=== PATIENT | male | born 1955 | race African-American/Black ===

== ENCOUNTER 2024-01-16 09:32 | Emergency (ER) | payer MEDICARE, OTHER ==
[~2024-01-16] VITALS: Ht 177.8 cm; Wt 79.5 kg
[2024-01-16 09:35] VITALS: TEMP 98.2
[2024-01-16] MEDS: IPRATROPIUM BROMIDE 0.5 MG/2.5 ML NEB SOLUTION NEB ONE (12:04)
[2024-01-16] MEDS: ALBUTEROL SULFATE 2.5 MG/0.5 ML NEB SOLUTION NEB ONE (12:04)
[2024-01-16 12:05] VITALS: PULSE 89; RESP 18; O2SAT 93
[2024-01-16 12:08] VITALS: PULSE 89; RESP 18; O2SAT 93
[2024-01-16 12:10] LABS: COVID AG,FIA SOURCE NASAL SWAB
[2024-01-16 12:15] LABS: BASOPHILS % (AUTO) 0.9 % (0.0-2.0); EOSINOPHILS % (AUTO) 2.1 % (1.0-6.0); HEMATOCRIT 48.9 % (41-53); HEMOGLOBIN 16.1 g/dL (13.5-17.5); LYMPHOCYTES % (AUTO) 18.4 % (22.0-44.0); MEAN CORPUSCULAR HEMOGLOBIN 35.5 pg (26.0-34.0); MEAN CORPUSCULAR VOLUME 107 fL (80-100); MONOCYTES # (AUTO) 0.5 K/uL (0.1-1.0); MONOCYTES % (AUTO) 9.8 % (2.0-9.0); NEUTROPHILS # (AUTO) 3.7 K/uL (1.8-7.7); NEUTROPHILS % (AUTO) 68.8 % (40.0-70.0); PLATELET COUNT (AUTO) 161 K/uL (150-450); RED BLOOD CELL COUNT(AUTO) 4.55 MIL/uL (4.50-5.90); RED CELL DISTRIBUTION WIDTH 13.7 % (11.5-14.5); WHITE BLOOD COUNT (AUTO) 5.4 K/uL (4.5-11.0)
[2024-01-16 12:22] LABS: ANION GAP 7 mmol/L (8-16); CALCIUM, TOTAL 9.4 mg/dL (8.8-10.5); CARBON DIOXIDE 31 mmol/L (22-29); CHLORIDE 98 mmol/L (98-107); CREATININE 0.99 mg/dL (0.60-1.30); GLOMERULAR FILTR. RATE CALC > 60 mL/min (>60); GLUCOSE,RANDOM 98 mg/dL (70-110); SODIUM SERUM 136 mmol/L (136-145); UREA NITROGEN, BLOOD 11 mg/dL (7-18)
[2024-01-16 12:25] VITALS: PULSE 86; RESP 18; O2SAT 100
[2024-01-16 12:29] LABS: B-TYPE NATRIURETIC PEPTIDE 21 pg/mL (0-100)
[2024-01-16 12:30] LABS: TROPONIN I-HIGH SENSITIVITY 15 ng/L (<76)
[2024-01-16 12:38] LABS: SARS-COV2 (COVID) ANTIGEN,FIA Negative (Negative)
[2024-01-16 12:40] LABS: INFLUENZA TYPE A NEGATIVE FOR TYPE A (NEGATIVE); INFLUENZA TYPE B NEGATIVE FOR TYPE B (NEGATIVE)
[2024-01-16 12:53] LABS: RBC MORPHOLOGY COMMENT ABNORMAL RBC MORPH
[2024-01-16] MEDS ORDERED: PRED-554 PO (13:56)
[2024-01-16] MEDS ORDERED: ALBU18HF12 IH (13:56)
[2024-01-16 13:59] VITALS: BP 144/88; PULSE 90; RESP 18
== END 2024-01-16 14:07 | disposition home or self-care (01) ==
LOC: EMS 09:32
DX: R06.02 Shortness of breath (principal); R05.9 Cough, unspecified; F17.210 Nicotine dependence, cigarettes, uncomplicated; Z20.822 Contact with and (suspected) exposure to COVID-19
CPT/HCPCS: 71046; 80048; 83880; 84484; 85025; 87804; 93005; 94640; 99285; 36415-L1; 36415-TC; J7613

== ENCOUNTER 2024-06-16 20:55 | Inpatient (IN) | payer MEDICARE ==
[~2024-06-16] VITALS: Ht 180.3 cm; Wt 76.9 kg
[~2024-06-16 20:55] MED LIST: ALBU18HF12 IH; PRED-554 PO
[2024-06-16 21:09] LABS: COVID AG,FIA SOURCE NASAL SWAB
[2024-06-16 21:26] LABS: INFLUENZA TYPE B NEGATIVE FOR TYPE B (NEGATIVE); SARS-COV2 (COVID) ANTIGEN,FIA Negative (Negative)
[2024-06-16 21:33] LABS: INFLUENZA TYPE A POSITIVE FOR TYPE A (NEGATIVE)
[2024-06-16 21:54] LABS: BASOPHILS % (AUTO) 0.4 % (0.0-2.0); EOSINOPHILS % (AUTO) 0.1 % (1.0-6.0); HEMOGLOBIN 16.5 g/dL (13.5-17.5); LYMPHOCYTES # (AUTO) 0.3 K/uL (1.0-4.8); LYMPHOCYTES % (AUTO) 5.8 % (22.0-44.0); MEAN CORPUSCULAR HEMOGLOBIN 36.1 pg (26.0-34.0); MEAN CORPUSCULAR VOLUME 110 fL (80-100); MONOCYTES # (AUTO) 0.4 K/uL (0.1-1.0); MONOCYTES % (AUTO) 7.7 % (2.0-9.0); NEUTROPHILS # (AUTO) 4.7 K/uL (1.8-7.7); PLATELET COUNT (AUTO) 121 K/uL (150-450); RED BLOOD CELL COUNT(AUTO) 4.56 MIL/uL (4.50-5.90); RED CELL DISTRIBUTION WIDTH 14.1 % (11.5-14.5); WHITE BLOOD COUNT (AUTO) 5.4 K/uL (4.5-11.0)
[2024-06-16 22:05] LABS: ANION GAP 10 mmol/L (8-16); CALCIUM, TOTAL 9.1 mg/dL (8.8-10.5); CARBON DIOXIDE 30 mmol/L (22-29); CHLORIDE 99 mmol/L (98-107); CREATININE 1.28 mg/dL (0.60-1.30); GLOMERULAR FILTR. RATE CALC > 60 mL/min (>60); GLUCOSE,RANDOM 126 mg/dL (70-110); POTASSIUM 4.4 mmol/L (3.5-5.1); SODIUM SERUM 139 mmol/L (136-145); UREA NITROGEN, BLOOD 23 mg/dL (7-18)
[2024-06-16 22:08] LABS: PLATELET MORPHOLOGY COMMENT GIANT PLTS PRESENT; RBC MORPHOLOGY COMMENT ABNORMAL RBC MORPH
[2024-06-16 22:13] LABS: TROPONIN I-HIGH SENSITIVITY 66 ng/L (<76)
[2024-06-16 22:18] LABS: B-TYPE NATRIURETIC PEPTIDE 51 pg/mL (0-100)
[2024-06-16 22:29] LABS: CREATINE KINASE, TOTAL ONLY 371 U/L (39-308)
[2024-06-16] MEDS: PredniSONE 20 MG TABLET PO ONE (22:35)
[2024-06-16] MEDS: ACETAMINOPHEN 500 MG TABLET PO ONE (22:35)
[2024-06-16 22:37] VITALS: PULSE 122; RESP 18; O2SAT 96
[2024-06-16] MEDS: IPRATROPIUM BROMIDE 0.5 MG/2.5 ML NEB SOLUTION NEB ONE (22:37)
[2024-06-16] MEDS: ALBUTEROL SULFATE 2.5 MG/0.5 ML NEB SOLUTION NEB ONE (22:37)
[2024-06-16 22:52] VITALS: PULSE 117; RESP 18; O2SAT 97
[2024-06-16] MEDS: OSELTAMIVIR PHOSPHATE 30 MG CAPSULE PO ONE (23:06)
[2024-06-17] MEDS ORDERED: SODIUM CHLORIDE 0.9% 100 ML ONE (00:12)
[2024-06-17] MEDS ORDERED: IOHEXOL 350 MG/ML 100 ML VIAL ONE (00:12)
[2024-06-17] MEDS: SODIUM CHLORIDE 0.9% 1,000 ML IV ONE (00:14)
[2024-06-17] MEDS ORDERED: DEXTROSE 50%-WATER 25 GM/50 ML SYRINGE IVP PRN (00:15)
[2024-06-17] MEDS ORDERED: 0.9% SODIUM CHLORIDE 10 ML SYRINGE IVP PRN (00:15)
[2024-06-17] MEDS: SODIUM CHLORIDE 0.9% 1,300 ML IV ONE (00:15)
[2024-06-17 00:56] LABS: ANION GAP 10 mmol/L (8-16); CALCIUM, TOTAL 8.9 mg/dL (8.8-10.5); CARBON DIOXIDE 28 mmol/L (22-29); CHLORIDE 98 mmol/L (98-107); CREATININE 1.53 mg/dL (0.60-1.30); GLOMERULAR FILTR. RATE CALC 55 mL/min (>60); GLUCOSE,RANDOM 130 mg/dL (70-110); SODIUM SERUM 136 mmol/L (136-145); UREA NITROGEN, BLOOD 25 mg/dL (7-18)
[2024-06-17] MEDS: CefTRIAXone 1 GM/DEXTROSE 50 ML IV ONE (00:56)
[2024-06-17 01:02] LABS: ALANINE AMINOTRANSFERASE 20 U/L (12-78); ALBUMIN 3.6 g/dL (3.4-5.0); ALKALINE PHOSPHATASE 76 U/L (46-116); ASPARTATE AMINOTRANSFERASE 33 U/L (15-37); BILIRUBIN,TOTAL 0.6 mg/dL (0.1-1.0); LACTATE DEHYDROGENASE 268 U/L (85-227); TOTAL PROTEIN, SERUM 7.6 g/dL (6.4-8.2)
[2024-06-17 02:30] VITALS: BP 150/85; PULSE 100; RESP 20; TEMP 98.7; O2SAT 94
[2024-06-17 03:29] LABS: TROPONIN I-HIGH SENSITIVITY 70 ng/L (<76)
[2024-06-17 05:27] VITALS: BP 125/71; PULSE 73; RESP 20; TEMP 98.9; O2SAT 100
[2024-06-17 08:24] VITALS: BP 141/85; PULSE 84; RESP 18; TEMP 97.8; O2SAT 99
[2024-06-17] MEDS: MethylPREDNISolone SOD SUCC 125 MG/2 ML VIAL IVP SCH (09:18)
[2024-06-17] MEDS: OSELTAMIVIR PHOSPHATE 30 MG CAPSULE PO SCH (09:19)
[2024-06-17 12:16] VITALS: BP 145/88; PULSE 87; RESP 17; TEMP 97.3; O2SAT 97
[2024-06-17] MEDS: DOXYCYCLINE HYCLATE 100 MG in DEXTROSE 5%-WATER 100 ML IV SCH (12:27)
[2024-06-17] MEDS ORDERED: SODIUM CHLORIDE 0.9% 250 ML IV ONE (12:30)
[2024-06-17] MEDS: INSULIN LISPRO 100 UNITS/ML SQ PRN (12:44)
[2024-06-17 14:01] LABS: GLUCOMETER DEV NAME(LOC) 5S.1D; GLUCOSE,POINT OF CARE 176 MG/DL (70-110)
[2024-06-17 16:38] VITALS: BP 159/95; PULSE 84; RESP 17; TEMP 97.8; O2SAT 96
[2024-06-17 18:06] LABS: GLUCOMETER DEV NAME(LOC) 5S.1D; GLUCOSE,POINT OF CARE 126 MG/DL (70-110)
[2024-06-17] MEDS: CefTRIAXone 1 GM/DEXTROSE 50 ML IV SCH (22:34)
[2024-06-18] VITALS (13 sets, daily range): BP systolic 123–140; BP diastolic 71–87; PULSE 73–87; RESP 16–20; TEMP 97.6–98; O2SAT 97–100
[2024-06-18 06:52] LABS: BASOPHILS % (AUTO) 1.3 % (0.0-2.0); EOSINOPHILS % (AUTO) 0 % (1.0-6.0); HEMATOCRIT 45.1 % (41-53); LYMPHOCYTES # (AUTO) 0.5 K/uL (1.0-4.8); LYMPHOCYTES % (AUTO) 9.5 % (22.0-44.0); MEAN CORPUSCULAR HEMOGLOBIN 36.8 pg (26.0-34.0); MEAN CORPUSCULAR HGB CONC 33.4 G/dL (31.0-37.0); MEAN CORPUSCULAR VOLUME 110 fL (80-100); MONOCYTES # (AUTO) 0.8 K/uL (0.1-1.0); MONOCYTES % (AUTO) 14.7 % (2.0-9.0); NEUTROPHILS # (AUTO) 4.3 K/uL (1.8-7.7); NEUTROPHILS % (AUTO) 74.5 % (40.0-70.0); PLATELET COUNT (AUTO) 121 K/uL (150-450); RED BLOOD CELL COUNT(AUTO) 4.09 MIL/uL (4.50-5.90); RED CELL DISTRIBUTION WIDTH 14.1 % (11.5-14.5); WHITE BLOOD COUNT (AUTO) 5.8 K/uL (4.5-11.0)
[2024-06-18 06:59] LABS: ANION GAP 5 mmol/L (8-16); CALCIUM, TOTAL 8.6 mg/dL (8.8-10.5); CARBON DIOXIDE 31 mmol/L (22-29); CHLORIDE 104 mmol/L (98-107); CREATININE 0.96 mg/dL (0.60-1.30); GLOMERULAR FILTR. RATE CALC > 60 mL/min (>60); GLUCOSE,RANDOM 102 mg/dL (70-110); POTASSIUM 4.8 mmol/L (3.5-5.1); SODIUM SERUM 140 mmol/L (136-145); UREA NITROGEN, BLOOD 22 mg/dL (7-18)
[2024-06-18 07:10] LABS: GLUCOMETER DEV NAME(LOC) 5S.2D; GLUCOSE,POINT OF CARE 112 MG/DL (70-110)
[2024-06-18 07:10] LABS: GLUCOMETER DEV NAME(LOC) 5S.2D; GLUCOSE,POINT OF CARE 134 MG/DL (70-110)
[2024-06-18 08:50] LABS: RBC MORPHOLOGY COMMENT ABNORMAL RBC MORPH
[2024-06-18 12:21] LABS: GLUCOMETER DEV NAME(LOC) 5S.1D; GLUCOSE,POINT OF CARE 115 MG/DL (70-110)
[2024-06-18] MEDS: IPRATROPIUM BROMIDE 0.5 MG/2.5 ML NEB SOLUTION NEB PRN (14:31)
[2024-06-18] MEDS: ALBUTEROL SULFATE 2.5 MG/0.5 ML NEB SOLUTION NEB PRN (14:31)
[2024-06-18] MEDS ORDERED: IPRATROPIUM BROMIDE 0.5 MG/2.5 ML NEB SOLUTION NEB SCH (17:30)
[2024-06-18] MEDS ORDERED: ALBUTEROL SULFATE 2.5 MG/0.5 ML NEB SOLUTION NEB SCH (17:30)
[2024-06-18 18:31] LABS: GLUCOMETER DEV NAME(LOC) 5S.1D; GLUCOSE,POINT OF CARE 149 MG/DL (70-110)
[2024-06-18] MEDS: IPRATROPIUM BROMIDE 0.5 MG/2.5 ML NEB SOLUTION NEB SCH (19:17)
[2024-06-18] MEDS: ALBUTEROL SULFATE 2.5 MG/0.5 ML NEB SOLUTION NEB SCH (19:17)
[2024-06-18] MEDS ORDERED: SODIUM CHLORIDE 0.9% 500 ML IV ONE (22:20)
[2024-06-19] VITALS (18 sets, daily range): BP systolic 133–148; BP diastolic 78–95; PULSE 80–106; RESP 16–24; TEMP 97.8–98.9; O2SAT 92–100
[2024-06-19 03:06] LABS: GLUCOMETER DEV NAME(LOC) 5S.1D; GLUCOSE,POINT OF CARE 111 MG/DL (70-110)
[2024-06-19 08:06] LABS: GLUCOMETER DEV NAME(LOC) 6S.2; GLUCOSE,POINT OF CARE 93 MG/DL (70-110)
[2024-06-19 09:12] LABS: BASOPHILS % (AUTO) 0.4 % (0.0-2.0); EOSINOPHILS % (AUTO) 0.1 % (1.0-6.0); HEMATOCRIT 43.2 % (41-53); HEMOGLOBIN 14.8 g/dL (13.5-17.5); LYMPHOCYTES # (AUTO) 0.7 K/uL (1.0-4.8); LYMPHOCYTES % (AUTO) 14.1 % (22.0-44.0); MEAN CORPUSCULAR HEMOGLOBIN 37.5 pg (26.0-34.0); MEAN CORPUSCULAR HGB CONC 34.2 G/dL (31.0-37.0); MEAN CORPUSCULAR VOLUME 110 fL (80-100); MONOCYTES # (AUTO) 0.6 K/uL (0.1-1.0); MONOCYTES % (AUTO) 13.7 % (2.0-9.0); NEUTROPHILS # (AUTO) 3.3 K/uL (1.8-7.7); NEUTROPHILS % (AUTO) 71.7 % (40.0-70.0); PLATELET COUNT (AUTO) 113 K/uL (150-450); RED BLOOD CELL COUNT(AUTO) 3.94 MIL/uL (4.50-5.90); RED CELL DISTRIBUTION WIDTH 13.8 % (11.5-14.5); WHITE BLOOD COUNT (AUTO) 4.6 K/uL (4.5-11.0)
[2024-06-19 09:22] LABS: ANION GAP 3 mmol/L (8-16); CALCIUM, TOTAL 8.7 mg/dL (8.8-10.5); CARBON DIOXIDE 35 mmol/L (22-29); CHLORIDE 102 mmol/L (98-107); GLOMERULAR FILTR. RATE CALC > 60 mL/min (>60); GLUCOSE,RANDOM 91 mg/dL (70-110); POTASSIUM 3.7 mmol/L (3.5-5.1); SODIUM SERUM 140 mmol/L (136-145); UREA NITROGEN, BLOOD 16 mg/dL (7-18)
[2024-06-19 10:05] LABS: RBC MORPHOLOGY COMMENT ABNORMAL RBC MORPH
[2024-06-19] MEDS ORDERED: LACT1CAP58 PO (12:42)
[2024-06-19] MEDS ORDERED: DOXY-354 PO (12:42)
[2024-06-19] MEDS ORDERED: PANT20TA PO (12:42)
[2024-06-19] MEDS ORDERED: OSEL30CA2 PO (12:42)
[2024-06-19] MEDS ORDERED: PRED-729 PO (12:42)
[2024-06-19] MEDS ORDERED: IPRA0.2S49 NEB (12:42)
[2024-06-19] MEDS ORDERED: ALBU2.5V39 NEB (12:42)
[2024-06-19] MEDS ORDERED: CEFD300C18 PO (12:42)
[2024-06-19 14:21] LABS: GLUCOMETER DEV NAME(LOC) 6S.1D; GLUCOSE,POINT OF CARE 131 MG/DL (70-110)
[2024-06-19 20:06] LABS: GLUCOMETER DEV NAME(LOC) 6N.2B; GLUCOSE,POINT OF CARE 156 MG/DL (70-110)
[2024-06-19] MEDS: CEFDINIR 300 MG CAPSULE PO SCH (21:09)
[2024-06-19] MEDS: DOXYCYCLINE HYCLATE 100 MG TABLET PO SCH (21:10)
[2024-06-20] VITALS (10 sets, daily range): BP systolic 138–141; BP diastolic 88–90; PULSE 89–94; RESP 18–22; TEMP 97.8–97.9; O2SAT 89–100
[2024-06-20 00:16] LABS: GLUCOMETER DEV NAME(LOC) 6N.2B; GLUCOSE,POINT OF CARE 172 MG/DL (70-110)
[2024-06-20 10:11] LABS: GLUCOMETER DEV NAME(LOC) 6S.1D; GLUCOSE,POINT OF CARE 103 MG/DL (70-110)
[2024-06-20] MEDS: PredniSONE 20 MG TABLET PO SCH (10:16)
[2024-06-20 21:31] LABS: GLUCOMETER DEV NAME(LOC) 6S.1D; GLUCOSE,POINT OF CARE 171 MG/DL (70-110)
== END 2024-06-20 20:13 | disposition home or self-care (01) | DRG 871 ==
LOC: EMS 20:55 → EDH 06-17 00:38 → 5S 06-17 02:18 → 6N 06-18 21:56
PROVIDERS: ADMIT Internal Medicine; ATTEND Internal Medicine
DX: A41.9 Sepsis, unspecified organism (principal); D65 Disseminated intravascular coagulation [defibrination syndrome]; E43 Unspecified severe protein-calorie malnutrition; J96.21 Acute and chronic respiratory failure with hypoxia; J44.1 Chronic obstructive pulmonary disease with (acute) exacerbation; J10.1 Influenza due to other identified influenza virus with other respiratory manifestations; E11.9 Type 2 diabetes mellitus without complications; R79.89 Other specified abnormal findings of blood chemistry; Z20.822 Contact with and (suspected) exposure to COVID-19; J43.9 Emphysema, unspecified; F17.210 Nicotine dependence, cigarettes, uncomplicated; R54 Age-related physical debility; Z68.23 Body mass index [BMI] 23.0-23.9, adult; Z71.6 Tobacco abuse counseling
CPT/HCPCS: 71045; 71275; 80048; 80053; 82550; 82962; 83605; 83615; 83735; 83880; 84145; 84484; 85025; 85379; 85730; 87040; 87804; 93005; 94640; 99285; J0696; J2919; J3490; J7030; J7040; J7050; J7060; 36415-L1; 36415-TC; J7613

== ENCOUNTER 2024-06-22 15:33 | Emergency (ER) | payer MEDICARE ==
[~2024-06-22] VITALS: Ht 180.3 cm; Wt 77.3 kg
[~2024-06-22 15:33] MED LIST changes: -ALBU18HF12 IH; +ALBU2.5V39 NEB; +CEFD300C18 PO; +DOXY-354 PO; +IPRA0.2S49 NEB; +LACT1CAP58 PO; +OSEL30CA2 PO; +PANT20TA PO; -PRED-554 PO; +PRED-729 PO
[2024-06-22 15:39] VITALS: TEMP 98.4
[2024-06-22] MEDS: ALBUTEROL SULFATE 2.5 MG/0.5 ML NEB SOLUTION NEB ONE (16:50)
[2024-06-22] MEDS: IPRATROPIUM BROMIDE 0.5 MG/2.5 ML NEB SOLUTION NEB ONE (16:50)
[2024-06-22 16:52] VITALS: PULSE 87; RESP 18; O2SAT 96
[2024-06-22 16:54] VITALS: PULSE 87; RESP 18; O2SAT 97
[2024-06-22 17:16] VITALS: BP 155/96; PULSE 92; RESP 18; O2SAT 97
== END 2024-06-22 17:18 | disposition home or self-care (01) ==
LOC: EMS 15:33
DX: J44.1 Chronic obstructive pulmonary disease with (acute) exacerbation (principal); F17.210 Nicotine dependence, cigarettes, uncomplicated; Z79.52 Long term (current) use of systemic steroids; Z79.899 Other long term (current) drug therapy
CPT/HCPCS: 94640; 99283

== ENCOUNTER 2024-06-24 10:54 | Emergency (ER) | payer MEDICARE ==
[~2024-06-24] VITALS: Ht 180.3 cm; Wt 77.3 kg
[2024-06-24 11:00] VITALS: TEMP 98.5
[2024-06-24] MEDS: ALBUTEROL SULFATE 2.5 MG/0.5 ML NEB SOLUTION NEB ONE (12:49)
[2024-06-24] MEDS: IPRATROPIUM BROMIDE 0.5 MG/2.5 ML NEB SOLUTION NEB ONE (12:49)
[2024-06-24 12:50] VITALS: PULSE 71; RESP 18; O2SAT 100
[2024-06-24 12:58] VITALS: BP 157/91; O2SAT 100
[2024-06-24] MEDS ORDERED: ALBU18HF12 IH (13:03)
[2024-06-24 13:05] VITALS: PULSE 78; RESP 18; O2SAT 100
[2024-06-24] MEDS ORDERED: ALBUTEROL SULFATE HFA 90 MCG/PUFF 8 GM INHALER IH ONE (13:09)
[2024-06-24] MEDS: ALBUTEROL SULFATE HFA 90 MCG/PUFF 8 GM INHALER IH ONE (13:10)
[2024-06-24 13:13] VITALS: PULSE 71; RESP 18; O2SAT 99
== END 2024-06-24 13:48 | disposition home or self-care (01) ==
LOC: EMS 10:54
DX: J44.9 Chronic obstructive pulmonary disease, unspecified (principal); Z79.52 Long term (current) use of systemic steroids; Z79.899 Other long term (current) drug therapy
CPT/HCPCS: 99283; 94640; J3535

== ENCOUNTER 2024-07-17 13:52 | Inpatient (IN) | payer MEDICARE ==
[~2024-07-17] VITALS: Ht 180.3 cm; Wt 80.0 kg
[~2024-07-17 13:52] MED LIST changes: +ALBU18HF12 IH; -CEFD300C18 PO; -DOXY-354 PO; +FURO20TA5 PO; -OSEL30CA2 PO
[2024-07-17 15:07] LABS: BASOPHILS % (AUTO) 0.9 % (0.0-2.0); EOSINOPHILS % (AUTO) 0.6 % (1.0-6.0); HEMATOCRIT 45.4 % (41-53); HEMOGLOBIN 14.8 g/dL (13.5-17.5); LYMPHOCYTES # (AUTO) 0.7 K/uL (1.0-4.8); LYMPHOCYTES % (AUTO) 11.7 % (22.0-44.0); MEAN CORPUSCULAR HEMOGLOBIN 35.4 pg (26.0-34.0); MEAN CORPUSCULAR HGB CONC 32.7 G/dL (31.0-37.0); MEAN CORPUSCULAR VOLUME 109 fL (80-100); MONOCYTES # (AUTO) 0.5 K/uL (0.1-1.0); MONOCYTES % (AUTO) 8.1 % (2.0-9.0); NEUTROPHILS # (AUTO) 4.8 K/uL (1.8-7.7); NEUTROPHILS % (AUTO) 78.7 % (40.0-70.0); PLATELET COUNT (AUTO) 175 K/uL (150-450); RED BLOOD CELL COUNT(AUTO) 4.18 MIL/uL (4.50-5.90); RED CELL DISTRIBUTION WIDTH 15.1 % (11.5-14.5); WHITE BLOOD COUNT (AUTO) 6.1 K/uL (4.5-11.0)
[2024-07-17 15:19] LABS: ANION GAP 3 mmol/L (8-16); CALCIUM, TOTAL 8.8 mg/dL (8.8-10.5); CARBON DIOXIDE 33 mmol/L (22-29); CHLORIDE 104 mmol/L (98-107); CREATININE 1.01 mg/dL (0.60-1.30); GLOMERULAR FILTR. RATE CALC > 60 mL/min (>60); GLUCOSE,RANDOM 119 mg/dL (70-110); POTASSIUM 3.7 mmol/L (3.5-5.1); SODIUM SERUM 140 mmol/L (136-145); UREA NITROGEN, BLOOD 13 mg/dL (7-18)
[2024-07-17 20:06] LABS: BASOPHILS % (AUTO) 1.2 % (0.0-2.0); EOSINOPHILS % (AUTO) 0.8 % (1.0-6.0); HEMATOCRIT 42.8 % (41-53); HEMOGLOBIN 14.3 g/dL (13.5-17.5); LYMPHOCYTES # (AUTO) 1.3 K/uL (1.0-4.8); LYMPHOCYTES % (AUTO) 20.3 % (22.0-44.0); MEAN CORPUSCULAR HEMOGLOBIN 36.3 pg (26.0-34.0); MEAN CORPUSCULAR HGB CONC 33.5 G/dL (31.0-37.0); MEAN CORPUSCULAR VOLUME 108 fL (80-100); MONOCYTES # (AUTO) 0.7 K/uL (0.1-1.0); MONOCYTES % (AUTO) 11.3 % (2.0-9.0); NEUTROPHILS # (AUTO) 4.1 K/uL (1.8-7.7); NEUTROPHILS % (AUTO) 66.4 % (40.0-70.0); PLATELET COUNT (AUTO) 173 K/uL (150-450); RED BLOOD CELL COUNT(AUTO) 3.95 MIL/uL (4.50-5.90); RED CELL DISTRIBUTION WIDTH 14.8 % (11.5-14.5); WHITE BLOOD COUNT (AUTO) 6.2 K/uL (4.5-11.0)
[2024-07-17 20:16] LABS: ANION GAP 0 mmol/L (8-16); CALCIUM, TOTAL 8.9 mg/dL (8.8-10.5); CARBON DIOXIDE 35 mmol/L (22-29); CHLORIDE 104 mmol/L (98-107); CREATININE 0.94 mg/dL (0.60-1.30); GLOMERULAR FILTR. RATE CALC > 60 mL/min (>60); GLUCOSE,RANDOM 103 mg/dL (70-110); POTASSIUM 3.6 mmol/L (3.5-5.1); SODIUM SERUM 139 mmol/L (136-145); UREA NITROGEN, BLOOD 12 mg/dL (7-18)
[2024-07-17 20:18] LABS: PLATELET MORPHOLOGY COMMENT LARGE PLTS PRESENT; RBC MORPHOLOGY COMMENT ABNORMAL RBC MORPH
[2024-07-17 20:21] LABS: CREATINE KINASE, TOTAL ONLY 65 U/L (39-308)
[2024-07-17 20:24] LABS: B-TYPE NATRIURETIC PEPTIDE 103 pg/mL (0-100); TROPONIN I-HIGH SENSITIVITY 28 ng/L (<76)
[2024-07-17] MEDS ORDERED: ACETAMINOPHEN 325 MG TABLET PO PRN (23:30)
[2024-07-17] MEDS ORDERED: ZOLPIDEM TARTRATE 5 MG TABLET PO PRN (23:30)
[2024-07-17] MEDS ORDERED: ONDANSETRON HCL 4 MG/2 ML VIAL IVP PRN (23:30)
[2024-07-17] MEDS ORDERED: MAGNESIUM HYDROXIDE SUSPENSION 30 ML UDCUP PO PRN (23:30)
[2024-07-17] MEDS ORDERED: HYDROCODONE/ACETAMINOPHEN 5-325 MG TABLET PO PRN (23:30)
[2024-07-17] MEDS ORDERED: MORPHINE SULFATE 2 MG/ML SYRINGE IVP PRN (23:30)
[2024-07-17] MEDS ORDERED: BISACODYL 10 MG RECTAL RECTAL SUPPOSITORY PR PRN (23:30)
[2024-07-18] VITALS (9 sets, daily range): BP systolic 109–161; BP diastolic 71–100; PULSE 80–105; RESP 18–20; TEMP 98–98.4; O2SAT 93–100
[2024-07-18 00:18] LABS: TROPONIN I-HIGH SENSITIVITY 28 ng/L (<76)
[2024-07-18] MEDS: HEPARIN SODIUM,PORCINE 5,000 UNITS/ML VIAL SQ SCH (01:32)
[2024-07-18 04:55] LABS: APPEARANCE,URINE CLEAR (CLEAR); BILIRUBIN,URINE NEGATIVE (NEGATIVE); COLOR,URINE YELLOW (YELLOW); GLUCOSE, URINE (UA) NEGATIVE (NEGATIVE); KETONES,URINE NEGATIVE (NEGATIVE); LEUKOCYTE ESTERASE ,URINE NEGATIVE (NEGATIVE); NITRATE,URINE NEGATIVE (NEGATIVE); OCCULT BLOOD,URINE NEGATIVE (NEGATIVE); PROTEIN,URINE TRACE mg/dL (NEGATIVE)
[2024-07-18] MEDS: IPRATROPIUM BROMIDE 0.5 MG/2.5 ML NEB SOLUTION NEB SCH (07:00)
[2024-07-18] MEDS: ALBUTEROL SULFATE 2.5 MG/0.5 ML NEB SOLUTION NEB SCH (07:00)
[2024-07-18 07:01] LABS: BASOPHILS % (AUTO) 1.8 % (0.0-2.0); EOSINOPHILS % (AUTO) 1.6 % (1.0-6.0); HEMATOCRIT 41.7 % (41-53); HEMOGLOBIN 13.9 g/dL (13.5-17.5); LYMPHOCYTES # (AUTO) 1.3 K/uL (1.0-4.8); LYMPHOCYTES % (AUTO) 24.5 % (22.0-44.0); MEAN CORPUSCULAR HEMOGLOBIN 36.1 pg (26.0-34.0); MEAN CORPUSCULAR HGB CONC 33.3 G/dL (31.0-37.0); MEAN CORPUSCULAR VOLUME 108 fL (80-100); MONOCYTES # (AUTO) 0.8 K/uL (0.1-1.0); MONOCYTES % (AUTO) 15.2 % (2.0-9.0); NEUTROPHILS # (AUTO) 2.9 K/uL (1.8-7.7); NEUTROPHILS % (AUTO) 56.9 % (40.0-70.0); PLATELET COUNT (AUTO) 165 K/uL (150-450); RED BLOOD CELL COUNT(AUTO) 3.85 MIL/uL (4.50-5.90); RED CELL DISTRIBUTION WIDTH 15.2 % (11.5-14.5); WHITE BLOOD COUNT (AUTO) 5.2 K/uL (4.5-11.0)
[2024-07-18 07:08] LABS: ANION GAP 4 mmol/L (8-16); CALCIUM, TOTAL 8.6 mg/dL (8.8-10.5); CARBON DIOXIDE 33 mmol/L (22-29); CHLORIDE 104 mmol/L (98-107); CREATININE 0.97 mg/dL (0.60-1.30); GLOMERULAR FILTR. RATE CALC > 60 mL/min (>60); GLUCOSE,RANDOM 102 mg/dL (70-110); POTASSIUM 3.3 mmol/L (3.5-5.1); SODIUM SERUM 141 mmol/L (136-145); UREA NITROGEN, BLOOD 15 mg/dL (7-18)
[2024-07-18 07:12] LABS: TROPONIN I-HIGH SENSITIVITY 29 ng/L (<76)
[2024-07-18] MEDS: LISINOPRIL 5 MG TABLET PO SCH (09:41)
[2024-07-18] MEDS: DOCUSATE SODIUM 100 MG CAPSULE PO SCH (09:41)
[2024-07-18] MEDS: CARVEDILOL 6.25 MG TABLET PO SCH (09:41)
[2024-07-18] MEDS: ASPIRIN 81 MG DR TABLET PO SCH (09:42)
[2024-07-18] MEDS: PANTOPRAZOLE SODIUM 40 MG DR TABLET PO SCH (09:42)
[2024-07-18] MEDS: FUROSEMIDE 20 MG/2 ML VIAL IVP SCH (09:42)
[2024-07-18 12:03] LABS: TROPONIN I-HIGH SENSITIVITY 19 ng/L (<76)
[2024-07-18] MEDS ORDERED: POTASSIUM CHL 10 MEQ/WATER 50 ML IV PRN (15:00)
[2024-07-18] MEDS: POTASSIUM CHLORIDE 20 MEQ ER TABLET PO PRN (17:07)
[2024-07-19] VITALS (16 sets, daily range): BP systolic 102–138; BP diastolic 64–81; PULSE 89–102; RESP 18–22; TEMP 98.1–98.5; O2SAT 90–100
[2024-07-19 07:11] LABS: BASOPHILS % (AUTO) 1.1 % (0.0-2.0); EOSINOPHILS % (AUTO) 1.8 % (1.0-6.0); HEMATOCRIT 41.8 % (41-53); HEMOGLOBIN 14.2 g/dL (13.5-17.5); LYMPHOCYTES # (AUTO) 1.1 K/uL (1.0-4.8); LYMPHOCYTES % (AUTO) 21.8 % (22.0-44.0); MEAN CORPUSCULAR HEMOGLOBIN 37.1 pg (26.0-34.0); MEAN CORPUSCULAR HGB CONC 33.9 G/dL (31.0-37.0); MEAN CORPUSCULAR VOLUME 109 fL (80-100); MONOCYTES # (AUTO) 0.8 K/uL (0.1-1.0); MONOCYTES % (AUTO) 15.8 % (2.0-9.0); NEUTROPHILS % (AUTO) 59.5 % (40.0-70.0); PLATELET COUNT (AUTO) 173 K/uL (150-450); RED BLOOD CELL COUNT(AUTO) 3.83 MIL/uL (4.50-5.90)
[2024-07-19 07:23] LABS: RBC MORPHOLOGY COMMENT ABNORMAL RBC MORPH
[2024-07-19 07:26] LABS: ANION GAP 1 mmol/L (8-16); CALCIUM, TOTAL 8.7 mg/dL (8.8-10.5); CARBON DIOXIDE 37 mmol/L (22-29); CHLORIDE 103 mmol/L (98-107); CHOL/HDL RATIO 2.1 (4.2-7.3); CHOLESTEROL 169 mg/dL (131-200); CREATININE 1.18 mg/dL (0.60-1.30); GLOMERULAR FILTR. RATE CALC > 60 mL/min (>60); GLUCOSE,RANDOM 106 mg/dL (70-110); HDL CHOLESTEROL 79 mg/dL (40-60); LDL CHOL (CALC.) 79 mg/dL (0-130); POTASSIUM 4.2 mmol/L (3.5-5.1); SODIUM SERUM 141 mmol/L (136-145); TRIGLYCERIDES 53 mg/dL (15-150); UREA NITROGEN, BLOOD 18 mg/dL (7-18)
[2024-07-19 14:28] LABS: AMPHET/METH SCREEN,URINE NEGATIVE (NEGATIVE); BARBITURATE SCREEN, URINE NEGATIVE (NEGATIVE); BENZODIAZEPINES SCREEN,URINE NEGATIVE (NEGATIVE); CANNABINOID SCREEN,URINE NEGATIVE (NEGATIVE); COCAINE SCREEN,URINE NEGATIVE (NEGATIVE); METHADONE SCREEN, URINE NEGATIVE (NEGATIVE); OPIATE SCREEN,URINE NEGATIVE (NEGATIVE); PHENCYCLIDINE SCREEN,URINE NEGATIVE (NEGATIVE)
[2024-07-19 14:31] LABS: ALCOHOL, URINE DRUG SCREEN NEGATIVE (NEGATIVE)
[2024-07-20] VITALS (9 sets, daily range): BP systolic 106–123; BP diastolic 64–77; PULSE 86–105; RESP 17–20; TEMP 98–98.5; O2SAT 90–96
[2024-07-20 07:23] LABS: BASOPHILS % (AUTO) 1.1 % (0.0-2.0); EOSINOPHILS % (AUTO) 1.7 % (1.0-6.0); HEMATOCRIT 41.7 % (41-53); HEMOGLOBIN 14.1 g/dL (13.5-17.5); LYMPHOCYTES # (AUTO) 1.1 K/uL (1.0-4.8); LYMPHOCYTES % (AUTO) 24.6 % (22.0-44.0); MEAN CORPUSCULAR HEMOGLOBIN 36.7 pg (26.0-34.0); MEAN CORPUSCULAR HGB CONC 33.9 G/dL (31.0-37.0); MEAN CORPUSCULAR VOLUME 108 fL (80-100); MONOCYTES # (AUTO) 0.7 K/uL (0.1-1.0); MONOCYTES % (AUTO) 16.5 % (2.0-9.0); NEUTROPHILS # (AUTO) 2.5 K/uL (1.8-7.7); NEUTROPHILS % (AUTO) 56.1 % (40.0-70.0); PLATELET COUNT (AUTO) 163 K/uL (150-450); RED BLOOD CELL COUNT(AUTO) 3.85 MIL/uL (4.50-5.90); RED CELL DISTRIBUTION WIDTH 15.2 % (11.5-14.5); WHITE BLOOD COUNT (AUTO) 4.4 K/uL (4.5-11.0)
[2024-07-20 07:36] LABS: ANION GAP 4 mmol/L (8-16); CALCIUM, TOTAL 8.6 mg/dL (8.8-10.5); CARBON DIOXIDE 33 mmol/L (22-29); CHLORIDE 100 mmol/L (98-107); CREATININE 1.03 mg/dL (0.60-1.30); GLOMERULAR FILTR. RATE CALC > 60 mL/min (>60); GLUCOSE,RANDOM 100 mg/dL (70-110); POTASSIUM 3.5 mmol/L (3.5-5.1); SODIUM SERUM 137 mmol/L (136-145); UREA NITROGEN, BLOOD 15 mg/dL (7-18)
[2024-07-20] MEDS: FUROSEMIDE 40 MG TABLET PO SCH (11:01)
[2024-07-20] MEDS ORDERED: ASPI-1444 PO (12:07)
[2024-07-20] MEDS ORDERED: CARV6.25 PO (12:07)
[2024-07-20] MEDS ORDERED: FURO40TA5 PO (12:07)
[2024-07-20] MEDS ORDERED: LISI-892 PO (12:07)
[2024-07-20] MEDS ORDERED: LISI-894 PO (12:11)
[2024-07-21] MEDS ORDERED: LISINOPRIL 5 MG TABLET PO SCH (09:00)
== END 2024-07-20 15:15 | disposition home or self-care (01) | DRG 291 ==
LOC: EMS 14:05 → EDH 07-18 02:01 → 5N 07-18 03:37
PROVIDERS: ADMIT Internal Medicine; ATTEND Internal Medicine
DX: I11.0 Hypertensive heart disease with heart failure (principal); I50.41 Acute combined systolic (congestive) and diastolic (congestive) heart failure; L97.919 Non-pressure chronic ulcer of unspecified part of right lower leg with unspecified severity; L97.929 Non-pressure chronic ulcer of unspecified part of left lower leg with unspecified severity; J96.10 Chronic respiratory failure, unspecified whether with hypoxia or hypercapnia; J44.1 Chronic obstructive pulmonary disease with (acute) exacerbation; R73.03 Prediabetes; E87.6 Hypokalemia; I44.7 Left bundle-branch block, unspecified; Z99.81 Dependence on supplemental oxygen; Z79.82 Long term (current) use of aspirin; Z87.891 Personal history of nicotine dependence; Z79.899 Other long term (current) drug therapy
CPT/HCPCS: 71045; 80048; 80061; 80307; 81003; 82550; 83036; 83880; 84132; 84484; 85025; 93005; 93306; 93970; 94640; 99285; J1644; J1940; 36415-L1; 36415-TC; J7613